=== PATIENT | female | born 1950 | race Caucasian/White ===

== ENCOUNTER 2021-06-15 03:40 | Emergency (ER) | payer OTHER, MEDICAID ==
[~2021-06-15] VITALS: Ht 160 cm; Wt 78.9 kg
[2021-06-15 03:46] VITALS: BP 94/58
--- NOTE | 2021-06-15 03:57 | NUR ---
PATIENT AMBULATED TO THE BATHROOM FOR URINE COLLECTION
--- NOTE | 2021-06-15 04:04 | NUR ---
PATIENT TO BED 3 AMBULATORY WITH BLAYNE
--- NOTE | 2021-06-15 04:05 | NUR ---
71 Y/O FEMALE BIB GRANDDAUGHTER WITH C/O OF HEADACHE, COUGH AND FEVER. PT. STATES THAT SYMPTOMS STARTED 3 DAYS AGO AND HAD A "ON AND OFF FEVER THE PAST 3 DAYS." DENIES PAIN/N/V/D. PT. ALSO STATES THAT SINCE 2 DAYS AGO SHE HAS BEEN NEEDING HELP TO WALK AND HAS A NON-PRODUCTIVE COUGH FOR 3 DAYS. UPON ARRIVAL, PT. TEMP IS 98.6. VSS; AA0X4; SKIN INTACT. MED HX: DM AND HYPOTHYROID ALLERGIES: NKA
--- NOTE | 2021-06-15 04:18 | NUR ---
SAIDA AND INFLUENZA A &B SWABS COLLECTED AND WALKED TO LAB
--- NOTE | 2021-06-15 04:45 | NUR ---
LABS DRAWN AND WALKED TO LAB
--- NOTE | 2021-06-15 05:10 | NUR ---
XRAY AT BEDSIDE
[2021-06-15 05:19] LABS: BASOPHILS # (AUTO) 0.1 K/uL (0.00-0.22); BASOPHILS % (AUTO) 0.6 % (0.0-2.0); HEMATOCRIT 40.9 % (36-48); HEMOGLOBIN 13.8 g/dL (12.0-16.0); LYMPHOCYTES # (AUTO) 1.1 K/uL (2.5-16.5); LYMPHOCYTES % (AUTO) 8.5 % (20.5-51.1); MEAN CORPUSCULAR HEMOGLOBIN 30 pg (27-31); MEAN CORPUSCULAR HGB CONC 34 g/dL (33-37); MEAN CORPUSCULAR VOLUME 87.3 fL (80-94); MONOCYTES # (AUTO) 0.8 K/uL (0.8-1.0); NEUTROPHILS # (AUTO) 11.1 K/uL (1.8-7.7); NEUTROPHILS % (AUTO) 84.9 % (42.2-75.2); PLATELET COUNT (AUTO) 229 K/uL (140-450); RED BLOOD CELL COUNT(AUTO) 4.69 MIL/uL (4.20-5.40); RED CELL DISTRIBUTION WIDTH 12.9 % (11.6-13.7)
[2021-06-15 05:29] LABS: ALBUMIN 3.4 g/dL (3.4-5.0); CREATININE 0.8 mg/dL (0.6-1.3); TOTAL BILIRUBIN 0.7 mg/dL (0.0-1.0)
[2021-06-15] MEDS ORDERED: AZITHROMYCIN 250 MG TAB PO ONE (05:50)
[2021-06-15] MEDS ORDERED: cefTRIAXone 1,000 MG VIAL ONE (05:54)
[2021-06-15] MEDS ORDERED: NACL 0.9% 2,500 ML IV ONE (06:05)
--- NOTE | 2021-06-15 06:09 | NUR ---
PT. TAKEN TO CT VIA GURLAKISHA Addendum: 06/15/21 at 0611 by MIA PT. TAKEN TO CT VIA W/C
--- NOTE | 2021-06-15 06:10 | NUR ---
BLOOD CULTURE DRAWN AND HANDED TO KEERTHI FROM LAB
--- NOTE | 2021-06-15 06:36 | NUR ---
PT. BACK FROM CT VIA W/C
[2021-06-15 06:55] VITALS: BP 108/61
--- NOTE | 2021-06-15 07:15 | NUR ---
Report and continuation of care received from SUZANNE Alvarado.
--- NOTE | 2021-06-15 07:15 | NUR ---
REPORT GIVEN TO SUZANNE HERNANDEZ. TRANSFER OF CARE AT THIS TIME.
--- NOTE | 2021-06-15 07:44 | NUR ---
Daughter at bedside. Disconnected from cut in station operator, pt ambulated to restroom with steady/even gait
[2021-06-15] MEDS ORDERED: SYN.1 PO (08:19)
[2021-06-15] MEDS ORDERED: VITA-16 PO (08:19)
[2021-06-15] MEDS ORDERED: METF-1243 PO (08:19)
[2021-06-15] MEDS ORDERED: ACET-10509 PO (08:22)
[2021-06-15] MEDS ORDERED: LEVO750T51 PO (08:22)
--- NOTE | 2021-06-15 08:26 | NUR ---
Dr. Castellanos is reevaluating patient at bedside
[2021-06-15] MEDS ORDERED: DOPPLER MC ONE (09:05)
--- NOTE | 2021-06-15 09:12 | NUR ---
Patient discharged with v/s stable. Written and verbal after care instructions given and explained. Patient alert, oriented and verbalized understanding of instructions. Ambulatory with steady gait. All questions addressed prior to discharge. ID band removed. Patient advised to follow up with PMD. Rx of Levofloxacin, Acetaminophen Tab given. Patient educated on indication of medication including possible reaction and side effects. Opportunity to ask questions provided and answered.
== END 2021-06-15 09:12 | disposition home or self-care (01) ==
LOC: MED 03:40
DX: J18.9 Pneumonia, unspecified organism (principal); Z20.822 Contact with and (suspected) exposure to COVID-19; R50.9 Fever, unspecified; R05.9 Cough, unspecified; Z79.899 Other long term (current) drug therapy
CPT/HCPCS: 36415; 71045; 71260; 80053; 81002; 83605; 84484; 85025; 87040; 87426; 87804; 93005; 96365; 99285; J0696; J7030; Q0092; Q9967

== ENCOUNTER 2024-05-16 09:27 | Emergency (ER) | payer BC, MEDICAID ==
[~2024-05-16] VITALS: Ht 157.5 cm; Wt 84.8 kg
[~2024-05-16 09:27] MED LIST: ACET500T99 PO; LEVO750T75 PO; METF-1243 PO; SYN.1 PO; VITA-16 PO
[2024-05-16 09:41] VITALS: BP 131/65; PULSE 64; RESP 15; TEMP 97.7; O2SAT 97
[2024-05-16 10:50] LABS: BASOPHILS # (AUTO) 0.1 K/uL (0.00-0.22); BASOPHILS % (AUTO) 0.7 % (0.0-2.0); EOSINOPHILS # (AUTO) 0.2 K/uL (0-0.4); EOSINOPHILS % (AUTO) 1.4 % (0.0-4.0); HEMOGLOBIN 13.3 g/dL (12.0-16.0); LYMPHOCYTES # (AUTO) 3.3 K/uL (2.5-16.5); LYMPHOCYTES % (AUTO) 25.8 % (20.5-51.1); MEAN CORPUSCULAR HEMOGLOBIN 30 pg (27-31); MEAN CORPUSCULAR HGB CONC 33 g/dL (33-37); MEAN CORPUSCULAR VOLUME 89.1 fL (80-94); MONOCYTES # (AUTO) 0.9 K/uL (0.8-1.0); MONOCYTES % (AUTO) 6.9 % (1.7-9.3); NEUTROPHILS # (AUTO) 8.3 K/uL (1.8-7.7); NEUTROPHILS % (AUTO) 65.2 % (42.2-75.2); PLATELET COUNT (AUTO) 279 K/uL (140-450); RED BLOOD CELL COUNT(AUTO) 4.49 MIL/uL (4.20-5.40); WHITE BLOOD COUNT (AUTO) 12.8 K/uL (4.8-10.8)
[2024-05-16 11:21] LABS: ALANINE AMINOTRANSFERASE 22 U/L (12-78); ALBUMIN 3.1 g/dL (3.4-5.0); ALKALINE PHOSPHATASE 102 U/L (50-136); ASPARTATE AMINOTRANSFERASE 13 U/L (15-37); CALCIUM 8.5 mg/dL (8.5-10.1); CREATININE 0.7 mg/dL (0.6-1.3); GLUCOSE 87 mg/dL (74-106); TOTAL BILIRUBIN 0.5 mg/dL (0.0-1.0); TOTAL PROTEIN, SERUM 6.8 g/dL (6.4-8.2); UREA NITROGEN, BLOOD 25 mg/dL (7-18)
[2024-05-16 11:26] LABS: ANION GAP 8.8 (8-16); CHLORIDE 105 mmol/L (98-107); POTASSIUM 3.8 mmol/L (3.5-5.1); SODIUM SERUM 139 mmol/L (136-145)
[2024-05-16 11:49] LABS: THYROID STIMULATING HORMONE 1.27 uIU/mL (0.34-3.74)
[2024-05-16 12:21] VITALS: BP 114/67; PULSE 89; RESP 19; TEMP 98; O2SAT 100
== END 2024-05-16 12:10 | disposition home or self-care (01) ==
LOC: MED 09:27
DX: R00.2 Palpitations (principal); R20.0 Anesthesia of skin; R61 Generalized hyperhidrosis; E11.9 Type 2 diabetes mellitus without complications; E03.9 Hypothyroidism, unspecified; Z79.899 Other long term (current) drug therapy
CPT/HCPCS: 36415; 70450; 71045; 80053; 84443; 84484; 85025; 93005; 99285; Q0092